=== PATIENT | male | born 1940 | race Caucasian/White ===

== ENCOUNTER 2017-04-23 16:03 | Emergency (ER) | payer MEDICARE, OTHER ==
[2017-04-23] MEDS ORDERED: Sodium Chloride 0.9% 10 ML Syringe FLUSH PRN (16:22)
[2017-04-23] MEDS ORDERED: Aspirin 81 MG Tab.Chew PO ONE (16:22)
--- NOTE | 2017-04-23 17:32 | EDM.PDOC ---
ED HPI GENERAL MEDICAL PROBLEM - General Chief Complaint: Chest Pain Stated Complaint: CHEST TIGHTNESS Time Seen by Provider: 04/23/17 16:05 Source of Information: Reports: Patient History Limitations: Reports: No Limitations - History of Present Illness INITIAL COMMENTS - FREE TEXT/NARRATIVE: The patient presents with chest tightness for 5 days. It is in the middle of his chest. Laying down in his chair makes it worse. He has a mild cough. He has no fever or chills. He does feel short of breath at times. He has some mild edema in his legs. He has no nausea, vomiting or abdominal pain. He said this all started one morning 5 days ago when he woke up with some reflux. He saw Dr Selby and she did an EKG that looked good. She wanted him to come to the ER and get a couple serial troponins. He had a heart cath in 2011 that looked good. Onset: Sudden Duration: Day(s): (5) Location: Reports: Chest Quality: Reports: Other (Tightness) Severity: Mild Improves with: Reports: None Worsens with: Reports: Other (Laying back in his chair makes it worse) Context: Reports: Activity (He woke up with it with some reflux) Associated Symptoms: Reports: Chest Pain Chest Pain Score (Numeric/FACES): 4 - Related Data Allergies Allergy/AdvReac Type Severity Reaction Status Date / Time atorvastatin Allergy Itching Verified 04/23/17 16:17 codeine Allergy Hives Verified 04/23/17 16:17 lisinopril Allergy Other Verified 04/23/17 16:17 Home Meds: Home Meds Amoxicillin 500 mg PO TID 04/23/17 [History] Aspirin [Halfprin] 81 mg PO Q2D 04/23/17 [History] Calcium Carbonate/Vitamin D3 [Calcium 500 + Vit D Caplet] 2 tab PO DAILY [History] Docusate Sodium 200 mg PO Q2D 04/23/17 [History] Finasteride [Proscar] 5 mg PO DAILY 04/23/17 [History] Gluc 2KCl/Chondr/Jamil Hy/Hy Ac [Glucosamine & Chondroitin Cap] 1 cap PO BID [History] Losartan [Cozaar] 25 mg PO DAILY 04/23/17 [History] Metoprolol Succinate [Toprol XL] 100 mg PO DAILY 04/23/17 [History] Nitroglycerin 0.4 mg SL ASDIRECTED 04/23/17 [History] Omeprazole 20 mg PO DAILY 04/23/17 [History] Pramoxine HCl [Sarna Sensitive] 0 ml TP ASDIRECTED 04/23/17 [History] Rosuvastatin [Crestor] 5 mg PO BEDTIME 04/23/17 [History] amLODIPine [Norvasc] 5 mg PO DAILY 04/23/17 [History] metFORMIN [Glucophage] 500 mg PO DAILY 04/23/17 [History] Past Medical History HEENT History: Reports: Hard of Hearing Cardiovascular History: Reports: Aneurysm, CAD, High Cholesterol, Hypertension, Pulmonary Hypertension, Other (See Below) Other Cardiovascular History: ascending aortic aneurysm Gastrointestinal History: Reports: GERD Endocrine/Metabolic History: Reports: Diabetes, Type II Social & Family History - Tobacco Use Smoking Status *Q: Former Smoker Used Tobacco, but Quit: No ED ROS GENERAL - Review of Systems Review Of Systems: See Below Constitutional: Reports: No Symptoms HEENT: Reports: No Symptoms Respiratory: Reports: Shortness of Breath Cardiovascular: Reports: Chest Pain Endocrine: Reports: No Symptoms GI/Abdominal: Reports: No Symptoms : Reports: No Symptoms Musculoskeletal: Reports: No Symptoms Skin: Reports: No Symptoms ED EXAM, GENERAL - Physical Exam Exam: See Below Exam Limited By: No Limitations General Appearance: Alert, No Apparent Distress Ears: Normal External Exam Nose: Normal Inspection Head: Atraumatic, Normocephalic Neck: Normal Inspection Respiratory/Chest: No Respiratory Distress, Lungs Clear, Normal Breath Sounds Cardiovascular: Regular Rate, Rhythm, No Edema, No Murmur GI/Abdominal: Soft, Non-Tender, No Organomegaly, No Mass Back Exam: Normal Inspection Extremities: Normal Inspection Neurological: Alert, Oriented, No Motor/Sensory Deficits Course - Vital Signs Last Recorded V/S: Last Vital Signs Temp 99.2 F 04/23/17 16:17 Pulse 80 04/23/17 16:17 Resp 14 04/23/17 16:17 BP 140/79 04/23/17 16:17 Pulse Ox 96 04/23/17 16:17 - Orders/Labs/Meds Orders: Active Orders 24 hr Category Date Time Status Cardiac Monitoring [RC] . DIRECTED Care 04/23/17 16:22 Active Peripheral IV Care [RC] . DIRECTED Care 04/23/17 16:23 Active TROPONIN I [CHEM] Stat Lab 04/23/17 18:21 Received Sodium Chloride 0.9% [Saline Flush] Med 04/23/17 16:22 Active 10 ml FLUSH ASDIRECTED PRN Peripheral IV Insertion Adult [OM.PC] Stat Oth 04/23/17 16:22 Ordered Medication Orders Sodium Chloride (Saline Flush) 10 ml FLUSH ASDIRECTED PRN PRN Reason: Keep Vein Open Last Admin: 04/23/17 16:30 Dose: 10 ml Labs: Laboratory Tests 04/23/17 04/23/17 Range/Units 16:22 16:22 WBC 7.81 (4.23-9.07) K/mm3 RBC 4.77 (4.63-6.08) M/mm3 Hgb 14.3 (13.7-17.5) gm/L Hct 42.3 (40.1-51.0) % MCV 88.7 (79.0-92.2) fl MCH 30.0 (25.7-32.2) pg MCHC 33.8 (32.2-35.5) g/dl RDW Std Deviation 41.3 (35.1-43.9) fL Plt Count 213 (163-337) K/mm3 MPV 9.6 (9.4-12.3) fl Neut % (Auto) 54.0 (34.0-67.9) % Lymph % (Auto) 28.4 (21.8-53.1) % [place] % (Auto) 12.3 H (5.3-12.2) % Eos % (Auto) 2.3 (0.8-7.0) Baso % (Auto) 0.6 (0.1-1.2) % Neut # (Auto) 4.21 (1.78-5.38) K/mm3 Lymph # (Auto) 2.22 (1.32-3.57) K/mm3 [place] # (Auto) 0.96 H (0.30-0.82) K/mm3 Eos # (Auto) 0.18 (0.04-0.54) K/mm3 Baso # (Auto) 0.05 (0.01-0.08) K/mm3 Manual Slide Review Normal smear Sodium 141 (136-145) mEq/L Potassium 4.0 (3.5-5.1) mEq/L Chloride 105 (98-107) mEq/L Carbon Dioxide 27 (21-32) mEq/L Anion Gap 13.0 (5-15) BUN 19 H (7-18) mg/dL Creatinine 1.4 H (0.7-1.3) mg/dL Est Cr Clr Drug Dosing 47.07 mL/min Estimated GFR (MDRD) 49 (>60) mL/min BUN/Creatinine Ratio 13.6 L (14-18) Glucose 121 H (83-115) mg/dL Calcium 9.1 (8.5-10.1) mg/dL Total Bilirubin 0.4 (0.2-1.0) mg/dL AST 19 (15-37) U/L ALT 33 (16-63) U/L Alkaline Phosphatase 39 L (46-116) U/L Troponin I < 0.017 (0.00-0.056) ng/mL Total Protein 7.4 (6.4-8.2) g/dl Albumin 3.7 (3.4-5.0) g/dl Globulin 3.7 gm/dL Albumin/Globulin Ratio 1.0 (1-2) Meds: Medications Generic Name Dose Route Start Last Admin Trade Name Freq PRN Reason Stop Dose Admin Sodium Chloride 10 ml 04/23/17 16:22 04/23/17 16:30 Saline Flush FLUSH 10 ml ASDIRECTED PRN Administration Keep Vein Open Discontinued Medications Generic Name Dose Route Start Last Admin Trade Name Freq PRN Reason Stop Dose Admin Aspirin 324 mg 04/23/17 16:22 04/23/17 16:30 Aspirin PO 04/23/17 16:23 324 mg ONETIME ONE Administration - Re-Assessments/Exams Free Text/Narrative Re-Assessment/Exam: 04/23/17 19:00 His EKG from the clinic shows a NSR with no acute changes. His CXR looks good. His CBC looks good. His CMP shows a creatinine of 1.4. His troponin is negative. I did a repeat troponin a few hours later and it was negative. Dr Selby called in a prescription for imdur. Departure - Departure Time of Disposition: 19:05 Disposition: Home, Self-Care 01 Condition: Good Clinical Impression: Atypical chest pain Referrals: Susan Selby MD [Primary Care Provider] - Forms: ED Department Discharge Additional Instructions: Take your medication's as prescribed. Dr Selby called in a prescription for imdur. Follow up with her and please return if you are worse. - My Orders Last 24 Hours: My Active Orders 04/23/17 16:22 Cardiac Monitoring [RC] . DIRECTED Sodium Chloride 0.9% [Saline Flush] 10 ml FLUSH ASDIRECTED PRN Peripheral IV Insertion Adult [OM.PC] Stat 04/23/17 16:23 Peripheral IV Care [RC] . DIRECTED 04/23/17 18:21 TROPONIN I [CHEM] Stat - Assessment/Plan Last 24 Hours: My Active Orders 04/23/17 16:22 Cardiac Monitoring [RC] . DIRECTED Sodium Chloride 0.9% [Saline Flush] 10 ml FLUSH ASDIRECTED PRN Peripheral IV Insertion Adult [OM.PC] Stat 04/23/17 16:23 Peripheral IV Care [RC] . DIRECTED 04/23/17 18:21 TROPONIN I [CHEM] Stat
--- NOTE | 2017-04-23 17:36 | CR ---
Chest: Portable view of the chest was obtained. Comparison: Previous chest x-ray of 04/07/12. Heart size appears within normal limits for portable technique. Tortuous thoracic aorta is seen. Widening of the superior mediastinum is seen most likely due to great vessels as this finding is stable from previous exam. Lungs are clear with no acute infiltrates. Bony structures are grossly intact. Impression: 1. Incidental findings. Nothing acute is appreciated. Diagnostic code #1
[2017-04-23 19:14] VITALS: BP 121/87
== END 2017-04-23 19:06 | disposition home or self-care (01) ==
LOC: JD.ED 16:03
DX: R07.89 Other chest pain (principal); I25.10 Atherosclerotic heart disease of native coronary artery without angina pectoris; E78.00 Pure hypercholesterolemia, unspecified; I10 Essential (primary) hypertension; K21.9 Gastro-esophageal reflux disease without esophagitis; E11.9 Type 2 diabetes mellitus without complications; Z88.5 Allergy status to narcotic agent; Z88.8 Allergy status to other drugs, medicaments and biological substances; Z79.82 Long term (current) use of aspirin; Z79.899 Other long term (current) drug therapy; Z79.84 Long term (current) use of oral hypoglycemic drugs; Z87.891 Personal history of nicotine dependence
CPT/HCPCS: 36415; 71010; 80053; 84484; 85025; 99285; A9270; J7050; 99283